=== PATIENT | female | born 1960 | race Caucasian/White ===

== ENCOUNTER 2017-05-07 18:43 | Emergency (ER) | payer OTHER ==
[~2017-05-07] VITALS: Ht 154.9 cm; Wt 93.0 kg
[~2017-05-07 18:43] MED LIST: ATENOLOL1 POW PO; CIPRO500 MG PO; FLA250 PO; LAC PO; MAGOX 400241.3 MG PO
[2017-05-07 20:36] VITALS: BP 116/73
== END 2017-05-07 20:36 | disposition home or self-care (01) ==
LOC: ED 18:43
DX: M25.562 Pain in left knee (principal); I48.91 Unspecified atrial fibrillation; I25.10 Atherosclerotic heart disease of native coronary artery without angina pectoris; Z88.5 Allergy status to narcotic agent
CPT/HCPCS: J1885; Q0092